=== PATIENT | female | born 1985 | race Caucasian/White ===

== ENCOUNTER 2017-01-27 04:00 | Inpatient (IN) | payer OTHER ==
--- NOTE | ~2017-01-27 | A ---
[facility] Nutrition Therapy DATE: 01/27/17 Patient: DANIELA MENDIETA Physician: SERGEI Address: [address] [facility] Room/Bed: [address], Zip: [place] [address] Admit Date: 01/27/17 Date of : [birth year] Height: 5 6 Weight: 84 38.5 NUTRITIONAL ASSESSMENT: REASON: NPO in ICU, low BMI 31 yo female admitted for acute hypoxic respiratory failure, anoxic encephalopathy PMH: DM, gasteroparesis, IV drug abuse, MRSA abscess/cellulitis in upper extremities Anthropometrics: Ht: 5'2" Wt: 38.2 kg (84#) BMI: 15.4 IBW: 110#, 76% IBW Labs: Gluc 647, BUN 32, Alb 2.3, POC 553, GFR 54.6 Meds: NaCl, Novolin, Protonix, Levophed, D5% I/O & Bowel function: none noted, last BM 01/27 (dirrhea) Skin Integrity: Open wounds (bilat AC), surgical scar (suprapubic), no edema noted Estimated Nutrition Needs: 8866-3082 kcal (35-40 kcal/kg) 57-76 g protein (1.5-2.0 g/kg) Assessment: Chart reviewed, events noted. Pt was admitted d/t OD. Pt is intubated in the ICU, currently on DKA protocol. Per chart, pt was previously admitted to [employer] [facility] d/t N/V, pt left AMA yesterday (01/26). Pt's family is at bedside. Pt's family confirmed height and weight. Pt's family reported pt has persistent N/V d/t gasteroparesis. Pt's family reported pt has very minimal intake and recent weight loss of unknown amount within the past month. Pt is at risk for refeeding syndrome d/t recent weight loss, low BMI, and prolonged poor PO intake. Per RD legal internship observation, pt appeared malnourished, refer to physical malnutrition assessment. See recommendations below. Dx: 1) Inadequate protein-energy intake RT gasteroparesis, N/V AEB family report, BMI 15.4, 76% IBW. 2) Underweight RT poor PO intake, unintentional weight loss AEB BMI 15.4, 76% IBW. Intervention: 1. Enteral nutrition Monitoring, Evaluation and Goals: 1. Enteral nutrition; provide >80% of estimated needs and goal volume x 24 hrs 2. Labs; WNL: glucose, lytes [facility] Nutrition Therapy DATE: 01/27/17 Patient: DANIELA MENDIETA Physician: SERGEI Address: [address] [place] [address] Room/Bed: [address], Zip: [place] [address] Admit Date: 01/27/17 Date of : [birth year] Height: 5 6 Weight: 84 38.5 3. Weight; promote gradual weight gain towards healthy BMI 4. GI; promote regular GI function 5. Skin; promote healing Recommendations: 1. Please obtain Phos & Mg. 2. If pt remains intubated and once medically feasible, place DHT and initiate enteral nutrition support with Glucerna 1.5 @ 10 mL/hr, advance q 12 hrs to goal rate of 40 mL/hr. This will provide: 1440 kcal/ 79 g protein/ 730 mL free H2O. Pt is at risk for refeeding syndrome, please monitor glucose and electrolytes. If enteral nutrition is initiated, start at low rate and graudally increase per RD recommendations above. 3. If extubated, advance diet as tolerated to consistent carb per HIDE SPREADER evaluation. Pt would benefit from supplements, please order Ensure once diet advances. Pt is at a severe nutritional risk. RD will f/u per protocol. Respectfully, Poonam Navarro, Stewardess Supervisor Cheryl Fuentes, BARRY, LD Food and Nutritional Services [facility] cc: client file
--- NOTE | ~2017-01-27 | CT71 ---
[facility] A Service [facility] RADIOLOGY TEXT RESULTS PATIENT: DANIELA MENDIETA LOCATION: [place] [address] : [birth year] UNIT #: [id number] AGE: [address]: Margot Muñoz MD SEX: F ORDER DR: [id number] [place] [address] [facility]. [place], [place] [address] [id number] I MR#: [id number] Acc #: [id number] NAME: DANIELA MENDIETA. : 1985 SEX: F STUDY DATE/TIME: 01/28/2017 10:13 UNIT: [facility] ROOM: [facility] STUDY DESCRIPTION: CT Head Wo Contrast Attending Physician: Margot Muñoz M.D. Ordering Physician: Souleymane Jones M.D. Primary Care Physician: Primary Care Physician No MEDICAL IMAGING REPORT This report is preliminary unless electronic signature is present EXAM CT of the head without contrast INDICATION Pulled from a car on January and found to be unresponsive. She had a CT scan performed at that time which was characteristic of an anoxic brain injury. TECHNIQUE Axial CT images were obtained from the vertex of the skull through the skull base. No intravenous contrast material was administered. This CT exam was performed with one or more of the following radiation dose reduction techniques: automatic exposure control, adjustment of mA and/or kV according to patient size, and iterative reconstruction. FINDINGS There is diffuse loss of the howe-white matter differentiation. There is significant effacement of the ventricles. The fourth ventricle and third ventricle cannot be identified. Basilar cisterns are also effaced. There is some mild mucosal thickening identified within the ethmoid sinuses. Remainder of the visualized paranasal sinuses and mastoid air cells appear clear. No focal soft tissue abnormalities are seen. IMPRESSION Findings are again characteristic of anoxic brain injury with diffuse cerebral edema. No significant interval change when compared to yesterday's study. Dictated by... Jimena Self M.D. [facility] A Service [facility] RADIOLOGY TEXT RESULTS PATIENT: DANIELA MENDIETA LOCATION: [address] : 85 UNIT #: [id number] AGE: [address]: Margot Muñoz MD SEX: F ORDER DR: THIS IS AN ELECTRONICALLY VERIFIED REPORT Jimena Self M.D. at 01/31/2017 7:55 AM ASHELY/katina TD: 01/28/2017 16:13 JOB #: [id number] MEDICAL IMAGING REPORT Page 1 of 1 COPY
--- NOTE | ~2017-01-27 | CT71 ---
[facility] A Service of [facility] RADIOLOGY TEXT RESULTS PATIENT: DANIELA MENDIETA LOCATION: [place] [id number] : 85 UNIT #: [id number] AGE: [address]: Margot Muñoz MD SEX: F ORDER DR: [id number] [place] [address] [facility]. [place], [place] [address] [id number] I MR#: [id number] Acc #: [id number] NAME: DANIELA MENDIETA. : 1985 SEX: F STUDY DATE/TIME: 01/27/2017 15:15 UNIT: [facility] ROOM: [facility] STUDY DESCRIPTION: CT Head Wo Contrast Attending Physician: Margot Muñoz M.D. Ordering Physician: Cheryl De Anda A.P.R.N. Primary Care Physician: No Primary Care Physician MEDICAL IMAGING REPORT This report is preliminary unless electronic signature is present EXAM CT scan of the head without contrast. INDICATION New onset confusion. Patient was pulled from a car unresponsive, is on a ventilator. This happened today. TECHNIQUE Unenhanced images were obtained of the brain. This CT exam was performed with one or more of the following radiation dose reduction techniques: automatic exposure control, adjustment of mA and/or kV according to patient size, and iterative reconstruction. FINDINGS There is diffuse swelling of the brain with loss of the howe-white interface and effacement of the sulci. The basilar cisterns are effaced. The lateral ventricles are still visible but they are small. There is no hemorrhage visible. IMPRESSION Findings suggest diffuse anoxic injury with loss of the howe-white interface and diffuse brain swelling. The basal cisterns are obliterated as are the sulci. There is no hemorrhage or mass visible. Dictated by... Layo Childs M.D. THIS IS AN ELECTRONICALLY VERIFIED REPORT Layo Childs M.D. at 01/28/2017 7:04 AM MASON/suzy [facility] A Service of [facility] RADIOLOGY TEXT RESULTS PATIENT: DANIELA MENDIETA LOCATION: [address] : 85 UNIT #: [id number] AGE: [address]: Margot Muñoz MD SEX: F ORDER DR: TD: 01/27/2017 21:50 JOB #: [id number] MEDICAL IMAGING REPORT Page 1 of 1 COPY
--- NOTE | ~2017-01-27 | EE ---
Unit #: [id number] #: [id number] Patient: DANIELA MENDIETA [id number] [address] [id number] I MR#: [id number] NAME: DANIELA MENDIETA : 1985 SEX: F STUDY DATE/TIME: 01/27/2017 UNIT: [facility] ROOM: [facility] STUDY DESCRIPTION: EEG Attending Physician: Margot Muñoz M.D. Primary Care Physician: No Primary Care Physician NEURODIAGNOSTICS REPORT CHIEF COMPLAINT Drug overdose. DESCRIPTION EEG was obtained in comatose state using the 10-20 international montage system by bedside. EEG showed very low amplitude theta range electroencephalographic activity during a 2-second segment in a 20-minute recording. There were no epileptiform discharges seen. IMPRESSION Findings are consistent with severe diffuse cerebral dysfunction. Dictated by... Kingsley Barnes/kari TD: 01/28/2017 07:41 JOB #: [id number] NEURODIAGNOSTICS REPORT Page 1 of 1 X Renetta Carroll MD NEURODIAGNOSTICS REPORT
--- NOTE | ~2017-01-27 | CR72 ---
[facility] A Service of [facility] RADIOLOGY TEXT RESULTS PATIENT: DANIELA MENDIETA LOCATION: [address] : 85 UNIT #: [id number] AGE: [address]: Margot Muñoz MD SEX: F ORDER DR: [id number] [facility] [address] [facility]. [place], [place] [address] [id number] MR#: [id number] Acc #: [id number] NAME: DANIELA MENDIETA : 1985 SEX: F STUDY DATE/TIME: 01/27/2017 4:22 UNIT: [facility] ROOM: STUDY DESCRIPTION: CR Chest Single View Portable Attending Physician: Edwin Armijo M.D. Ordering Physician: Ed Doctor [id number] [facility] Primary Care Physician: Primary Care Physician No MEDICAL IMAGING REPORT This report is preliminary unless electronic signature is present EXAM Portable chest HISTORY Cardiac arrest, overdose. COMPARISON 05/17/2016 FINDINGS Portable view of the chest demonstrates endotracheal tube in place directed into the right mainstem bronchus. This should be pulled back about 3.5 cm for more optimal positioning. Small amount of left basilar atelectasis. Heart and mediastinum unremarkable. No significant effusions. No pneumothorax. Dictated by... Grady Pollard M.D. THIS IS AN ELECTRONICALLY VERIFIED REPORT Grady Pollard M.D. at 01/27/2017 10:06 PM PEREZ/hedy TD: 01/27/2017 05:27 JOB #: [id number] MEDICAL IMAGING REPORT Page 1 of 1 COPY
--- NOTE | ~2017-01-27 | CR72 ---
[facility] A Service of [facility] RADIOLOGY TEXT RESULTS PATIENT: DANIELA MENDIETA LOCATION: [place] [address] : 85 UNIT #: [id number] AGE: [address]: Margot Muñoz MD SEX: F ORDER DR: [id number] [facility] [address] [place], [place] [address] [id number] I MR#: [id number] Acc #: [id number] NAME: DANIELA MENDIETA : 1985 SEX: F STUDY DATE/TIME: 01/29/2017 5:48 UNIT: [facility] ROOM: [facility] STUDY DESCRIPTION: CR Chest Single View Portable Attending Physician: Margot Muñoz M.D. Ordering Physician: Ron Reid M.D. Primary Care Physician: Primary Care Physician No MEDICAL IMAGING REPORT This report is preliminary unless electronic signature is present EXAM Portable chest INDICATION Follow up support lines and tubes. COMPARISON 01/28/2017. FINDINGS Support lines and tubes are stable. No new infiltrates. Heart size stable. IMPRESSION No significant change in the appearance of the chest. Dictated by... Tres Pollard M.D. THIS IS AN ELECTRONICALLY VERIFIED REPORT Tres Pollard M.D. at 01/29/2017 3:56 PM MILLY/brayden TD: 01/29/2017 15:03 JOB #: [id number] MEDICAL IMAGING REPORT Page 1 of 1 COPY
--- NOTE | ~2017-01-27 | EE ---
Unit #: [id number] #: [id number] Patient: DANIELA MENDIETA [id number] [address] [address] [id number] I MR#: [id number] NAME: DANIELA MENDIETA : 1985 SEX: F STUDY DATE/TIME: UNIT: [facility] ROOM: [facility] STUDY DESCRIPTION: EEG Attending Physician: Margot Muñoz M.D. Primary Care Physician: No Primary Care Physician NEURODIAGNOSTICS REPORT EXAM EEG CHIEF COMPLAINT Anoxic brain injury. DESCRIPTION EEG was obtained in comatose state using the 10-20 International Montage System by bedside. EEG did not show any discernible electroencephalographic activity. IMPRESSION Findings are consistent with electroencephalographic brain . Clinical correlation is advised. Dictated by... Kingsley Barnes/moustapha TD: 01/30/2017 16:01 JOB #: [id number] NEURODIAGNOSTICS REPORT Page 1 of 1 X Renetta Carroll MD NEURODIAGNOSTICS REPORT
--- NOTE | ~2017-01-27 | HP ---
Unit #: [id number] #: [id number] Patient: DANIELA MENDIETA [id number] [address] [place], [place] [address] [id number] I MR#: [id number] NAME: DANIELA MENDIETA. ROOM: [facility] Age: 31 Sex: F Admission Date: 01/27/2017 : 1985 Attending Physician: Margot Muñoz M.D. Primary Care Physician: No Primary Care Physician HISTORY AND PHYSICAL REASON FOR ADMISSION Acute hypoxic respiratory failure/anoxic encephalopathy. HISTORY OF PRESENT ILLNESS The patient is a 31-year-old female with prior history of insulin-dependent diabetes, numerous hospital admissions secondary to DKA, endocarditis with ongoing IV drug abuse, who has been repeatedly admitted off and on at our particular hospital as well as [facility] with a longstanding history of noncompliance, who apparently was dropped off by a group of friends early on the a.m. on January 27, 2017. Initially, she was noted to be obtunded with poor respiratory status and unable to protect airway and subsequently she was intubated in the emergency room. She was also noted to be hypotensive and was placed on Levophed drip. She did respond to normal saline boluses. Her Levophed drip is being continued; however, it is gradually being weaned. She does not have any appreciable neurological response. There is no pupil response. Her pupils are now dilated as well. She is currently on no sedation and is currently on the ventilator as well. There are no family members who are present at bedside. Details are unclear of the events that led prior to her being dropped off here at the hospital. PAST MEDICAL HISTORY 1. Numerous hospital admissions off and on secondary to bacteremia, MRSA infections, poorly controlled diabetes, DKA. Diabetes followed by Dr. Castillo as an outpatient. 2. Ongoing IV drug abuse. 3. Prior history of MRSA abscess/cellulitis bilateral upper extremities. 4. Prior history of skin graft placements. PAST SURGICAL HISTORY 1. . 2. Knee surgeries. 3. Bilateral arm surgeries with skin grafts. SOCIAL HISTORY Patient lives at home with her mother. Per chart report, she has ongoing IV drug abuse. Positive tobacco abuse. Unit #: [id number] #: [id number] Patient: DANIELA MENDIETA FAMILY HISTORY Notable. Mother: Rheumatoid arthritis. ALLERGIES No known drug allergies per chart. HOME MEDICATIONS 1. Humalog. 2. Levemir. 3. Reglan. 4. Phenergan. However, questionable compliance. REVIEW OF SYSTEMS Limited secondary to current condition. DIAGNOSTIC STUDIES LABORATORY: Laboratory studies on admission include a urine tox screen positive for opioids. Initial arterial blood gas shows a pH of 6.824, pCO2 of 55, pO2 of 250. CBC shows a white count of 18.4, hemoglobin 7.8. BMP shows blood sugar of 801, BUN and creatinine of 32.1 and 1.3, bicarbonate 10. AST, ALT of 5416 and 1526. IMAGING: Initial chest x-ray remains clear. PHYSICAL EXAMINATION VITAL SIGNS: Temperature 96.6, pulse 122, respiratory rate 22, blood pressure 102/70. GENERAL APPEARANCE: The patient is a 31-year-old female on no sedation, on ventilator support. No appreciable response. HEENT: Head: Atraumatic, normocephalic. Eyes: Pupils fixed, dilated. NECK: Supple. No JVD. No carotid bruits. CARDIOVASCULAR: S1, S2 without murmur heard. RESPIRATORY: Poor air exchange noted bilaterally. GASTROINTESTINAL/ABDOMEN: Nondistended. EXTREMITIES: No evidence of any lower extremity edema. NEUROLOGIC: The patient has no appreciable neurological response. No pupillary response which is noted. Patient does not withdraw to pain stimuli. INITIAL ADMISSION DIAGNOSES 1. Acute hypoxic respiratory failure. 2. Diabetic ketoacidosis. 3. Anoxic encephalopathy, likely severe. 4. Ongoing IV drug abuse. 5. Transaminitis, secondary likely to shock. 6. Septic shock on admission. 7. Hypotension. 8. Sepsis present on admission. PLAN 1. Admission intensive care unit. 2. Consultation will be placed to Dr. Reid of pulmonary services as well as neurology services. 3. Diabetic ketoacidosis protocol initiated. 4. No family members are currently present at bedside. Will follow up Unit #: [id number] #: [id number] Patient: DANIELA MENDIETA with them. 5. Levophed drip, titrate to keep blood pressure/MAP greater than 65. 6. Overall and unfortunately this patient's prognosis is dismal/poor. Will await neurological function and re-evaluation by Dr. Jones. I will follow up with family members. Prognosis poor at this point. Dictated by Kingsley Hill/lovely TD: 01/27/2017 10:08 JOB #: [id number] HISTORY AND PHYSICAL Page 1 of 1 X Margot Muñoz MD X HISTORY AND PHYSICAL
--- NOTE | ~2017-01-27 | EKG ---
PATIENT: DANIELA MENDIETA UNIT #: [id number] Ventricular Rate: 128 BPM Atrial Rate: 128 BPM P-R Interval: 112 ms QRS Duration: 90 ms Q-T Interval: 374 ms QTC Calculation(Bezet): 546 ms Calculated R [place]: 26 degrees Calculated T [place]: -146 degrees Diagnosis Line: Sinus tachycardia Diagnosis Line: ST and T wave abnormality, consider inferior Diagnosis Line: ischemia Diagnosis Line: ST and T wave abnormality, consider anterolateral Diagnosis Line: ischemia Diagnosis Line: Abnormal ECG Diagnosis Line: No previous ECGs available Diagnosis Line: Confirmed by JAY LAKE MD ([id number]) on 01/27/2017 Diagnosis Line: 10:05:03 AM INTERPRETING MD: JAYA HERNANDEZ
--- NOTE | ~2017-01-27 | DS ---
Unit #: [id number] #: [id number] Patient: DANIELA MENDIETA [id number] [address] [address] [id number] I MR#: [id number] NAME: DANIELA MENDIETA. ROOM: [facility] Age: 31 Sex: F Admission Date: 01/27/2017 : 1985 Discharge Date: 01/31/2017 Attending Physician: Margot Muñoz M.D. Primary Care Physician: No Primary Care Physician DISCHARGE SUMMARY The patient . HISTORY OF PRESENT ILLNESS The patient is a 31-year-old female, prior history of diabetes, insulin dependence, longstanding history of IV drug abuse, was admitted secondary to drug overdose, acute hypoxic respiratory failure through hospital course, placed ventilator, ICU and consultation was obtained with Dr. Reid and associates from pulmonary. Also, consultation was placed with neurology services. The patient underwent EEG, CT brain which did reveal changes consistent with cerebral edema. EEG showed findings that were consistent with minimal brain activity. The patient received no sedation, had no neurological reflex through hospital course. Pulmonary services as well as neurology services stated her prognosis was dismal. The patient ultimately on 01/31/2017. FINAL DISCHARGE DIAGNOSES 1. Acute hypoxic/hypercapnic respiratory failure. 2. Status post cardiopulmonary arrest. 3. Drug overdose. 4. Severe anoxic encephalopathy. 5. Probable aspiration pneumonia. 6. Diabetic ketoacidosis on admission. 7. Ongoing drug abuse with prior history of endocarditis. 8. Longstanding history of noncompliance and poor insight into disease process. 9. Cerebral edema noted on day of admission. Dictated by... Margot Muñoz M.D. ISN/moustapha TD: 02/01/2017 08:02 JOB #: [id number] Unit #: [id number] #: [id number] Patient: DANIELA MENDIETA DISCHARGE SUMMARY Page 1 of 1 X Margot Muñoz MD X DISCHARGE SUMMARY
--- NOTE | ~2017-01-27 | MAL ---
[facility] Nutrition Therapy DATE: 01/27/17 Patient: DANIELA MENDIETA Physician: SERGEI Address: [address] [facility] Room/Bed: [address], Zip: [place] [id number] Admit Date: 01/27/17 Date of : [birth year] Height: 5 6 Weight: 84 38.5 PHYSICAL MALNUTRITION ASSESSMENT Energy Intake, Chronic Illness Severely reduced: </=50% needs for >/=1 month Energy Intake Comment: Pt's family reported pt prolonged minimal intake for the past month d/t gastroparesis. Likely, less than 50% of estimated needs. Weight Loss, Chronic Illness Severe: >10% past 6 months Weight Loss, Comment: Pt's family reported recent weight loss within the past month. Per [employer], pt has lost 24# (22% weight loss) since September (5 months). Physical Findings Body Fat and Muscle Mass Severe: (obvious) significant muscle wasting and/or loss of subcutaneous fat Physical Findings Comment: Per RD quality intern observation, shoulder to arm joint looks square, hollow orbitals with dark circles, and protruding, prominent clavicle. Malnutrition Survey Results: Malnutrition identified Malnutrition Etiology Summary: Chronic illness severe Malnutrition Survey Comment: See RD nutrition assessement for additional information. Respectfully, Poonam Navarro, Investment Associate Cheryl Fuentes RD, LD Food and Nutritional Services [facility] [place] [facility] cc: client file
--- NOTE | ~2017-01-27 | CR72 ---
[facility] A Service of [facility] & [facility] RADIOLOGY TEXT RESULTS PATIENT: DANIELA MENDIETA LOCATION: [place] [address] : [birth year] UNIT #: [id number] AGE: [address]: Margot Muñoz MD SEX: F ORDER DR: [id number] [facility] [address] [facility]. [place], [place] [address] [id number] I MR#: [id number] Acc #: [id number] NAME: DANIELA MENDIETA : 1985 SEX: F STUDY DATE/TIME: 01/28/2017 5:48 UNIT: [facility] ROOM: [facility] STUDY DESCRIPTION: CR Chest Single View Portable Attending Physician: Margot Muñoz M.D. Ordering Physician: Physician Non-Staff Primary Care Physician: Primary Care Physician No MEDICAL IMAGING REPORT This report is preliminary unless electronic signature is present EXAM Portable chest, 01/28/2017 COMPARISON 01/27/2017 HISTORY Endotracheal tube follow-up. Drug overdose. FINDINGS A portable view of the chest was obtained. The heart size and vascularity are normal and the lungs are clear. There is central venous catheter with its tip in the right atrium and the endotracheal tube is in good position. IMPRESSION No change. No active disease. The endotracheal tube is in good position. Dictated by... Layo Childs M.D. THIS IS AN ELECTRONICALLY VERIFIED REPORT Layo Childs M.D. at 01/28/2017 4:07 PM MASON/katina TD: 01/28/2017 08:06 JOB #: [id number] MEDICAL IMAGING REPORT Page 1 of 1 COPY
--- NOTE | ~2017-01-27 | CO ---
Unit #: [id number] #: [id number] Patient: DANIELA MENDIETA [id number] [facility]. [place], [place] [address] [id number] MR#: [id number] NAME: DANIELA MENDIETA. ROOM: [id number] Age: 31 Sex: F Admission Date: 01/27/2017 : 1985 Attending Physician: Margot Muñoz M.D. Primary Care Physician: No Primary Care Physician CONSULTATION REPORT HISTORY OF PRESENT ILLNESS Ms. Mendieta is a 31-year-old white female, who was brought in by acquaintances after being found down at home. She apparently had been in the hospital at [facility] for nausea and vomiting, at least in the emergency room. She left AMA yesterday. She also left AMA from another ER visit recently. She has a history of diabetes mellitus, endocarditis, and IV drug abuse. Her mother says that she had kicked her out of the house because she was using drugs. She apparently had gone to somebody's house yesterday and her mother had called her and her mother could tell that she had been using drugs but Ms. Mendieta would not return home and apparently she was found down and transported here and resuscitated. I am told she was given Narcan without any response. Here in the emergency room, she was intubated. Her ET tube was at the milton. It has been pulled back. Her lab work was significant for a glucose of 801, creatinine 1.3, potassium 5, sodium 140, CO2 of 10. AST, ALT, and alkaline phosphatase of 5416, 1526, and 333. Lactic acid has not been done. Acetaminophen was less than 10 and salicylate was 5. Beta hydroxybutyrate has not been done yet. Alcohol level was 9. Arterial blood gases revealed pH of 7.05, pCO2 of 32, pO2 of 227 on 50%, assist control of 18, tidal volume 450, and 5 of PEEP. Initial cardiac enzymes were negative. White count was 18,400, hematocrit 26.5 which was stable from before. Platelet count is 119,000. Previous HIV in February 2016 was nonreactive. Toxicity screen/urine tox was positive for opiates. No urinalysis has been done at present. PAST MEDICAL HISTORY 1. History of diabetes. 2. Gastroparesis. 3. History of endocarditis in July, according to the records in the chart. 4. History of IV drug abuse. 5. History of MRSA abscess and cellulitis in the upper extremities. PAST SURGICAL HISTORY 1. . 2. Right knee surgery. 3. Bilateral arm surgery with skin grafts bilaterally. 4. She has had three children. SOCIAL HISTORY Had been living with her mother. Has three children cared for by their father. Continued IV drug abuse. A few cigarettes. ALLERGIES Unit #: [id number] #: [id number] Patient: DANIELA MENDIETA No known allergies. HOME MEDICATIONS 1. Humalog. 2. Levemir. 3. Reglan. 4. Probiotic. FAMILY HISTORY Rheumatoid arthritis. REVIEW OF SYSTEMS Not possible. Patient completely unresponsive. PHYSICAL EXAMINATION GENERAL: White female. She is orally intubated. Pupils fixed and dilated. No gag. No corneals, doll's eyes. VITAL SIGNS: Blood pressure is 102/70, pulse is 122, respiratory rate is 22, temperature 96.6. She is currently maintained on Levophed drip. Lowest blood pressure recorded was 50/28. She has received 2 L of fluid in the ER over the last five hours. NECK: Supple. Trachea midline. LUNGS: Occasional rhonchi. CARDIAC: Regular rate and rhythm. Could not appreciate murmur, rub, or gallop. ABDOMEN: Nontender. Bowel sounds present. No hepatosplenomegaly. EXTREMITIES: Without clubbing, cyanosis, or edema. Scars on forearm. No response to pain. DIAGNOSTIC STUDIES LABORATORY: Laboratory studies are reviewed. IMAGING: Chest x-ray: ET tube just above milton. No infiltrate, mass, or congestion. IMPRESSION 1. Respiratory failure, acute. 2. Diabetic ketoacidosis. 3. IV drug abuse and overdose. 4. Leukocytosis. 5. Diarrhea. 6. Questionable history of endocarditis. 7. Chronic anemia. 8. Thrombocytopenia. 9. Anoxic encephalopathy. PLAN 1. Vent support. 2. Broad-spectrum antibiotics for infection given leukocytosis. 3. Rule out myocardial infarction given leukocytosis. 4. Neuro to see. 5. Diabetic ketoacidosis protocol. 6. Hydration with normal saline. 7. Replacement of potassium, etc. as needed. 8. Panculture. 9. Rule out Clostridium difficile given diarrhea. 10. Further recommendations pending this. Unit #: [id number] #: [id number] Patient: DANIELA MENDIETA Forty minutes critical care time. Discussed (1) seeing patient, reviewing charts, discussing with mother and nursing staff. Dictated by... Kingsley Kowalski/lovely TD: 01/27/2017 09:33 JOB #: [id number] CONSULTATION REPORT Page 1 of 1 X Ron Reid MD X CONSULTATION REPORT
--- NOTE | ~2017-01-27 | CO ---
Unit #: [id number] #: [id number] Patient: DANIELA MENDIETA [id number] [facility] [address]. [place], [place] [address] [id number] MR#: [id number] NAME: DANIELA MENDIETA. ROOM: [facility] Age: 31 Sex: F Admission Date: 01/27/2017 : 1985 Attending Physician: Margot Muñoz M.D. Primary Care Physician: No Primary Care Physician Consultation Date: 01/27/2017 CONSULTATION REPORT PRIMARY CARE PHYSICIAN Not listed. CONSULTING PHYSICIAN Dr. Ron Reid. REASON FOR CONSULT Overdose. PATIENT IDENTIFICATION This is a 31-year-old right handed female evaluated in ICU, room 17 at [facility]. SOURCE OF INFORMATION Obtained from the patient's mother at the bedside as well as the medical record. HISTORY OF PRESENT ILLNESS This is a 31-year-old right handed female with a past medical history of insulin-dependent diabetes mellitus, recurrent DKA, noncompliance, and IV drug abuse who presents to [facility] with altered mental status and impaired respiratory status. Apparently, she was dropped off by some friends. She was intubated in the ER and admitted for acute respiratory failure. Neurologically, she has had no response. She has not been sedated. She was initially placed on a Levophed drip and she was sent to the ICU for further monitoring and evaluation. She was also started on DKA protocol. Her glucose on arrival was 801. Her CO2 was 10, and she has multiple other abnormal labs. Urine tox screen was positive for opiates. Her mother is at the bedside and states that she has had a lot of recent struggles with drug abuse and noncompliant. She states that she was actually just recently hospitalized at [facility] and she was actually in the ICU and left against medical advice she says as late as yesterday. She states that she was supposed to be having a "heart evaluation for possible heart infection" but that was not completed. She states that the patient took a cab to her house. She states that she paid for the cab to take her to the place where she was living; however, she thinks that she instructed the cab to take her elsewhere to get drugs. She was dropped off by some friends and had apparently decreased mental status, was obtunded and had very poor respiratory effort and required intubation. Neurology was asked to evaluate further. On evaluation, she has not been sedated. She is intubated. She has no response to noxious stimuli. Her pupils are fixed and dilated. She has no pupillary response, no oculocephalic reflex response, and no corneal response at this time. She does not appear to Unit #: [id number] #: [id number] Patient: DANIELA MENDIETA have any myoclonus at this time and again, essentially no movement in response to noxious stimuli. No brain imaging studies available at this time. A CT scan has been ordered. PAST MEDICAL HISTORY 1. Insulin-dependent diabetes mellitus. 2. Recurrent DKA. 3. Noncompliance. 4. Gastroparesis. 5. History of endocarditis in July, per medical records. Apparently, she was recently being re-evaluated for possible endocarditis at [facility] per the mother. 6. Ongoing IV drug abuse. 7. MRSA abscess and cellulitis in the upper extremities. She was seen at this facility and treated for that in September of this year. 8. Chronic anemia. 9. Tobacco abuse. 10. . 11. Right knee surgery. 12. Bilateral arm surgery including skin graft. FAMILY HISTORY Noncontributory to representing condition. SOCIAL HISTORY The patient apparently lives on and off with her mother and stays elsewhere. I am uncertain of her living situation. Otherwise, her mother states that she has other living arrangements. She has ongoing IV drug use with poor insight to her condition. She has history of tobacco use. Her alcohol level was 9 on arrival. ALLERGIES No known drug allergies. HOME MEDICATIONS As per med rec, include: 1. Humalog insulin sliding scale. 2. Levemir insulin 30 units subcutaneous b.i.d. 3. Reglan 10 mg p.o. daily. 4. Probiotic one tab p.o. daily. REVIEW OF SYSTEMS Unable to obtain given the patient's current medical condition. PHYSICAL EXAMINATION VITAL SIGNS: Temperature 97.7. She has been afebrile. She was hypothermic on arrival. Pulse 119, respirations 20, blood pressure 121/77. She is on Levophed. She was severely hypotensive on arrival, lowest blood pressure of 50/28 early this morning after arrival and intubation. Oxygen saturations 99%. Height 5 feet 6 inches, weight 84 pounds, BMI 13. NEUROLOGIC: She is nonresponsive at this time. She is intubated. She is not sedated. She does have positive opiates in her system on her drug screen. Her alcohol level was 9 on arrival. She again does not response to any noxious stimuli, has 0/3 eye signs, negative corneals, negative oculocephalic reflex, and pupils are fixed and dilated at 5. CRANIAL NERVES: Very limited. Unable to evaluate uribe of vision. Again, eyes are conjugate. She has no ptosis or nystagmus or hippus. She Unit #: [id number] #: [id number] Patient: DANIELA MENDIETA has negative oculocephalic reflex. Unable to evaluate sensation in the face and scalp or strength of muscles of facial expression. No asymmetry seen. Unable to evaluate hearing, tongue, uvula, palate, head turning, or shoulder shrug as the patient is unresponsive. Neck is supple. MOTOR: She has decreased tone. No response to deep nail bed pressure in all extremities. SENSORY: No response to noxious stimuli. COORDINATION: Unable to assess. GAIT: Gat and Romberg unable to assess. REFLEXES: Not elicited. Toes were moot. DIAGNOSTIC STUDIES LABORATORY: Sodium 140, potassium 5, chloride 107, CO2 of 10, glucose 801, BUN 32, creatinine 1.3, estimated GFR 54.6. Calcium 8.6. AST 5416, ALT 1526, alkaline phosphatase 333. Acetaminophen level less than 10. Salicylate level 5. Alcohol level 9. White blood cell count 18.4, hemoglobin 7.8, hematocrit 26.5, platelet count 119,000. Urine drug screen positive for opiates. Troponin less than 0.05. IMAGING: CT of the head has been ordered and is pending. EEG has been ordered and is pending. CARDIOVASCULAR: EKG: Sinus tachycardia with ventricular rate of 128 beats per minute with ST and T wave abnormality per cardiology report on January 27, 2017. IMPRESSION 1. Encephalopathy: Clinical concern for anoxic injury. 2. IV drug abuse: Questionable overdose. 3. Acute respiratory failure, pulmonology following. 4. Diabetic ketoacidosis. 5. History of insulin-dependent diabetes mellitus. 6. Leukocytosis. 7. Possible recent endocarditis, per the mother. Patient left against medical advice from [facility] prior to full evaluation. 8. Recent methicillin-resistant Staphylococcus aureus cellulitis of extremities, secondary to IV drug use. Will place in isolation given open lesions of right upper extremity currently on exam. 9. Noncompliance. PLAN Patient has currently no response to noxious stimuli. She was brought in, in the early hours this morning so she is less than 12 hours from initial event. Will monitor closely. Request a CT scan of the head, EEG to be done at the bedside. Case was discussed with Dr. Carroll and he will see and we will follow along with you. I discussed the patient's physical exam with the mother and answered her questions and we will update her pending further evaluation and pending workup. Please call for any questions or issues. We thank you very much for allowing us to assist in the care of this patient. Dictated by... Cheryl De Anda A.P.R.N. for Unit #: [id number] #: [id number] Patient: DANIELA MENDIETA M.D. [facility]/lovely TD: 01/27/2017 13:24 JOB #: [id number] CONSULTATION REPORT Page 1 of 1 X Cheryl De Anda DIRECTOR OF LABOR RELATIONS X CONSULTATION REPORT
--- NOTE | ~2017-01-27 | CR72 ---
[facility] A Service of [facility] RADIOLOGY TEXT RESULTS PATIENT: DANIELA MENDIETA LOCATION: [address] : [birth year] UNIT #: [id number] AGE: [address]: Margot Muñoz MD SEX: F ORDER DR: [id number] [facility] [address]. [place], [place] [address] [id number] MR#: [id number] Acc #: [id number] NAME: DANIELA MENDIETA : 1985 SEX: F STUDY DATE/TIME: 01/27/2017 5:27 UNIT: [facility] ROOM: STUDY DESCRIPTION: CR Chest Single View Portable Attending Physician: Javier Kennedy M.D. Ordering Physician: Ricardo Delgado M.D. Primary Care Physician: Primary Care Physician No MEDICAL IMAGING REPORT This report is preliminary unless electronic signature is present EXAM Portable chest HISTORY Overdose, central line placement. FINDINGS Examination demonstrates slight pullback of the patient's endotracheal tube now at the milton. Additional pullback of at least 2.5-3 cm recommended. Interval placement of a right neck approach central line probably projecting near or into the right atrium. Lungs remain clear. No effusions. No pneumothorax. Heart, mediastinum unremarkable. Dictated by... Grady Pollard M.D. THIS IS AN ELECTRONICALLY VERIFIED REPORT Grady Pollard M.D. at 01/27/2017 10:08 PM PEREZ/brayden TD: 01/27/2017 06:33 JOB #: [id number] MEDICAL IMAGING REPORT Page 1 of 1 COPY
[~2017-01-27 04:00] MED LIST: DOCUSATE SODIU100 MG PO; DOXYCYCLINE HY100 M3 PO; DOXYCYCLINE PO; HUMALOG100 U/M1 SQ; HUMALOG100 U/ML SUBQ; HUMALOG100 UNIT/2; IRON325 ( 651 PO; IRON325 ( 652 PO; LEVEMIR SQ; LEVEMIR SUBQ; LEVEMIR100 UNITS/ SUBCON; LORTAB 7.5-3251 EACH PO; MIRAPEX0.125 MG PO; NORCO 7.5-3251 EACH PO; PHENERGAN12.5 MG PO; PROBIOTIC1 EAC1 PO; REGLAN10 MG PO; TYLENOL325 M1 PO; VITAMIN C500 M1 PO
[2017-01-27 04:33] LABS: ARTERIAL BLD GAS O2 SATURATION 97.6 % (90.0-100.0); ARTERIAL BLOOD GAS CARBOXY HB 0.7 %sat (0.0-9.0)
[2017-01-27 04:34] LABS: ARTERIAL BLOOD GAS ART SITE RIGHT FEMORAL; ARTERIAL BLOOD GAS DELIVERY VENT; ARTERIAL BLOOD GAS VENT MODE AC; ARTERIAL BLOOD GAS pH 6.824 (7.350-7.450); ARTERIAL DRAW? YES
[2017-01-27 05:06] LABS: AMPHETAMINE NEG (NEG); BARBITURATES NEG (NEG); BENZODIAZEPINES NEG (NEG); COCAINE NEG (NEG); MARIJUANA NEG (NEG); OPIATES POS (NEG); TRICYCLIC ANTIDEPRESSANTS NEG (NEG); U METHADONE NEG (NEG)
[2017-01-27 05:40] LABS: POC - CKMB 2.6 ng/mL (0.0-7.9); POC - TROPONIN <0.05 ng/mL (<=0.05)
[2017-01-27 06:17] LABS: BASOPHIL# 0.1 X10e3 (0-0.3); BASOPHIL% 0.6 % (0-2.5); EOSINOPHIL% 0.2 % (0.0-7.0); HEMATOCRIT 26.5 % (35.0-45.0); HEMOGLOBIN 7.8 gm/dL (12.0-16.0); LYMPHOCYTE# 3.7 X10e3 (1.0-3.5); LYMPHOCYTE% 20.2 % (17.0-45.0); MEAN CELL VOLUME 95.1 FL (83-96); MEAN CORPUSCULAR HEMOGLOBIN 27.9 PG (28-34); MEAN CORPUSCULAR HGB CONC 29.3 g/dL (30-36); MEAN PLATELET VOLUME 7.3 FL (6.5-11.5); MONOCYTE# 0.4 X10e3 (0-1.0); MONOCYTE% 2.4 % (3.0-12.0); NEUTROPHIL# 14.1 X10e3 (1.5-7.1); NEUTROPHIL% 76.6 % (40-75); PLATELET COUNT 119 X10e3 (140-420); RED BLOOD COUNT 2.79 X10e (3.90-5.30); RED CELL DISTRIBUTION WIDTH 16.3 % (11.0-15.5); WHITE BLOOD COUNT 18.4 X10e3 (4.0-10.5)
[2017-01-27 06:18] LABS: DIFF IND YES
[2017-01-27 06:36] LABS: ANISOCYTOSIS MOD; MICROCYTOSIS SL; PLATELET ESTIMATE NORMAL (NORMAL)
[2017-01-27 06:45] LABS: ARTERIAL BLOOD GAS CARBOXY HB 0.6 %sat (0.0-9.0); ARTERIAL BLOOD GAS MET HB 1.3 %sat (0.0-2.0)
[2017-01-27 06:47] LABS: ARTERIAL BLOOD GAS ART SITE RIGHT BRACHIAL; ARTERIAL BLOOD GAS VENT MODE A/C; ARTERIAL BLOOD GAS pH 7.058 (7.350-7.450); ARTERIAL DRAW? YES
[2017-01-27 08:05] LABS: ALBUMIN SERUM 2.3 g/dL (3.5-5.0); ALCOHOL BLOOD 9 mg/dL (0); ALKALINE PHOSPHATASE 333 U/L (32-92); ALT (SGPT) 1526 U/L (10-40); BILIRUBIN, DIRECT 0.2 mg/dL (0.0-0.2); BILIRUBIN,INDIRECT 0.8 mg/dL (0.0-0.9); BLOOD UREA NITROGEN 32 mg/dL (9-23); BUN/CREATININE RATIO 24.61; CALCIUM SERUM 8.6 mg/dL (8.4-10.2); CARBON DIOXIDE 10 mmol/L (22-31); CHLORIDE 107 mmol/L (100-111); CREATININE SERUM 1.3 mg/dL (0.6-1.4); GLOM FILT RATE Estimated 54.6 mL/min (>60); PROTEIN TOTAL SERUM 4.9 g/dL (6.0-8.3); SODIUM 140 mmol/L (135-145)
[2017-01-27 08:06] LABS: ACETAMINOPHEN <10 ug/mL; AST (SGOT) 5416 U/L (10-42); GLUCOSE FASTING 801 mg/dL (70-110)
[2017-01-27] MEDS ORDERED: LEVEMIR SUBQ (08:11)
[2017-01-27] MEDS ORDERED: HUMALOG100 UNIT/1 (08:11)
[2017-01-27] MEDS ORDERED: REGLAN10 MG PO (08:12)
[2017-01-27] MEDS ORDERED: PROBIOTIC1 EAC1 PO (08:12)
[2017-01-27 10:28] LABS: ARTERIAL BLD GAS O2 SATURATION 97.8 % (90.0-100.0); ARTERIAL BLOOD GAS CARBOXY HB 1.1 %sat (0.0-9.0); ARTERIAL BLOOD GAS HCO3 12.1 mmol/L; ARTERIAL BLOOD GAS MET HB 1.3 %sat (0.0-2.0); ARTERIAL BLOOD GAS PCO2 29.4 mmHg (35.0-45.0); ARTERIAL BLOOD GAS pH 7.221 (7.350-7.450)
[2017-01-27] MEDS ORDERED: AMBIEN PO (10:30)
[2017-01-27 10:31] LABS: ARTERIAL BLOOD GAS ALLEN TEST NORMAL; ARTERIAL BLOOD GAS ART SITE RIGHT BRACHIAL; ARTERIAL BLOOD GAS DELIVERY VENT; ARTERIAL BLOOD GAS VENT MODE AC; ARTERIAL DRAW? YES
[2017-01-27 11:28] LABS: URINE APPEARANCE CLEAR; URINE BILIRUBIN NEG (NEG); URINE BLOOD NEG (NEG); URINE COLOR YELLOW; URINE GLUCOSE >1000 MG/DL (NEG); URINE KETONE 3+ (NEG); URINE LEUKOCYTE ESTERASE NEG (NEG); URINE NITRATE NEG (NEG); URINE PH 5.5 (5-8); URINE PROTEIN 1+ (NEG); URINE SPECIFIC GRAVITY 1.024 (1.003-1.035); URINE UROBILINOGEN 0.2 MG/DL (NEG)
[2017-01-27 11:30] LABS: URINE BACTERIA AUWI NEG (NEGATIVE); URINE SQUAMOUS EPITHELIAL CELL NONE SEEN /[HPF]; UWBCS1 AUWI 0-2 (0-5)
[2017-01-27 11:32] LABS: CULTURE INDICATED? NO
[2017-01-27 12:02] LABS: %MB 4.1 % (0.0-4.0); MB 19.4 ng/ml
[2017-01-27 19:03] LABS: %MB 6.7 % (0.0-4.0); MB 41.9 ng/ml
[2017-01-27 20:34] LABS: CALCIUM SERUM 7.7 mg/dL (8.4-10.2); CREATININE SERUM 1.8 mg/dL (0.6-1.4); GLOM FILT RATE Estimated 36.9 mL/min (>60)
[2017-01-27 20:40] LABS: POTASSIUM 2.6 mmol/L (3.5-5.1)
[2017-01-28 01:41] LABS: BUN/CREATININE RATIO 18.33; CALCIUM SERUM 7.6 mg/dL (8.4-10.2); CREATININE SERUM 1.8 mg/dL (0.6-1.4); GLOM FILT RATE Estimated 36.9 mL/min (>60); PHOSPHOROUS 2.8 mg/dL (2.5-4.6)
[2017-01-28 01:44] LABS: POTASSIUM 2.7 mmol/L (3.5-5.1)
[2017-01-28 01:59] LABS: %MB 6.6 % (0.0-4.0); MB 41.1 ng/ml
[2017-01-28 04:41] LABS: ARTERIAL BLOOD GAS CARBOXY HB 0.8 %sat (0.0-9.0); ARTERIAL BLOOD GAS HCO3 15.7 mmol/L; ARTERIAL BLOOD GAS MET HB 0.7 %sat (0.0-2.0); ARTERIAL BLOOD GAS PCO2 25.4 mmHg (35.0-45.0); ARTERIAL BLOOD GAS pH 7.399 (7.350-7.450)
[2017-01-28 04:42] LABS: ARTERIAL BLOOD GAS ALLEN TEST NORMAL; ARTERIAL BLOOD GAS ART SITE RIGHT RADIAL; ARTERIAL BLOOD GAS DELIVERY VENT; ARTERIAL BLOOD GAS VENT MODE AC; ARTERIAL DRAW? YES
[2017-01-28 06:18] LABS: BUN/CREATININE RATIO 17.22; CALCIUM SERUM 7.4 mg/dL (8.4-10.2); CREATININE SERUM 1.8 mg/dL (0.6-1.4); GLOM FILT RATE Estimated 36.9 mL/min (>60); POTASSIUM 3.1 mmol/L (3.5-5.1)
[2017-01-28 08:31] LABS: BASOPHIL% 0.6 % (0-2.5); EOSINOPHIL# 0.1 X10e3 (0-0.7); EOSINOPHIL% 1.7 % (0.0-7.0); HEMOGLOBIN 7.2 gm/dL (12.0-16.0); LYMPHOCYTE# 0.7 X10e3 (1.0-3.5); LYMPHOCYTE% 20.2 % (17.0-45.0); MEAN CORPUSCULAR HEMOGLOBIN 28.4 PG (28-34); MEAN CORPUSCULAR HGB CONC 32.6 g/dL (30-36); MEAN PLATELET VOLUME 6.3 FL (6.5-11.5); MONOCYTE# 0.1 X10e3 (0-1.0); MONOCYTE% 2.5 % (3.0-12.0); NEUTROPHIL# 2.6 X10e3 (1.5-7.1); RED BLOOD COUNT 2.52 X10e (3.90-5.30); RED CELL DISTRIBUTION WIDTH 16.5 % (11.0-15.5)
[2017-01-28 08:52] LABS: WHITE BLOOD COUNT 3.5 X10e3 (4.0-10.5)
[2017-01-28 08:58] LABS: PLATELET COUNT 59 X10e3 (140-420)
[2017-01-28 09:08] LABS: DIFF IND YES; MEAN CELL VOLUME 87.2 FL (83-96)
[2017-01-28 09:19] LABS: ANISOCYTOSIS SL; NUCLEATED RED BLOOD CELL 1 /100 (0); PLATELET ESTIMATE DECREASED (NORMAL)
[2017-01-28 09:20] LABS: TEAR DROP CELLS PRESENT
[2017-01-28 09:21] LABS: SMUDGE CELLS 11 /100
[2017-01-29 03:51] LABS: ARTERIAL BLD GAS O2 SATURATION 98.8 % (90.0-100.0); ARTERIAL BLOOD GAS CARBOXY HB 0.6 %sat (0.0-9.0); ARTERIAL BLOOD GAS HCO3 12.7 mmol/L; ARTERIAL BLOOD GAS MET HB 0.8 %sat (0.0-2.0); ARTERIAL BLOOD GAS PCO2 25.8 mmHg (35.0-45.0)
[2017-01-29 03:54] LABS: ARTERIAL BLOOD GAS ART SITE RIGHT BRACHIAL; ARTERIAL BLOOD GAS DELIVERY VENT; ARTERIAL BLOOD GAS VENT MODE AC; ARTERIAL DRAW? YES
[2017-01-29 05:52] LABS: BASOPHIL# 0.1 X10e3 (0-0.3); EOSINOPHIL% 0.7 % (0.0-7.0); HEMATOCRIT 22.7 % (35.0-45.0); HEMOGLOBIN 7.3 gm/dL (12.0-16.0); LYMPHOCYTE# 0.9 X10e3 (1.0-3.5); LYMPHOCYTE% 16.2 % (17.0-45.0); MEAN CELL VOLUME 89.2 FL (83-96); MEAN CORPUSCULAR HEMOGLOBIN 28.5 PG (28-34); MEAN CORPUSCULAR HGB CONC 31.9 g/dL (30-36); MEAN PLATELET VOLUME 7.1 FL (6.5-11.5); MONOCYTE# 0.1 X10e3 (0-1.0); MONOCYTE% 2.5 % (3.0-12.0); NEUTROPHIL# 4.5 X10e3 (1.5-7.1); NEUTROPHIL% 79.6 % (40-75); RED BLOOD COUNT 2.55 X10e (3.90-5.30); RED CELL DISTRIBUTION WIDTH 17.2 % (11.0-15.5)
[2017-01-29 05:55] LABS: WHITE BLOOD COUNT 5.6 X10e3 (4.0-10.5)
[2017-01-29 05:57] LABS: DIFF IND NO; PLATELET COUNT 31 X10e3 (140-420)
[2017-01-29 06:19] LABS: BUN/CREATININE RATIO 13.21; CALCIUM SERUM 7.8 mg/dL (8.4-10.2); CREATININE SERUM 2.8 mg/dL (0.6-1.4); GLOM FILT RATE Estimated 21.6 mL/min (>60)
[2017-01-30 04:04] LABS: ARTERIAL BLD GAS O2 SATURATION 94.7 % (90.0-100.0); ARTERIAL BLOOD GAS CARBOXY HB 1.2 %sat (0.0-9.0); ARTERIAL BLOOD GAS HCO3 13.1 mmol/L; ARTERIAL BLOOD GAS MET HB 0.8 %sat (0.0-2.0); ARTERIAL BLOOD GAS pH 7.312 (7.350-7.450)
[2017-01-30 05:16] LABS: ARTERIAL DRAW? YES
[2017-01-30 05:17] LABS: ARTERIAL BLOOD GAS ART SITE RIGHT BRACHIAL; ARTERIAL BLOOD GAS DELIVERY VENT; ARTERIAL BLOOD GAS VENT MODE AC
[2017-01-31 04:19] LABS: ARTERIAL BLOOD GAS CARBOXY HB 0.8 %sat (0.0-9.0); ARTERIAL BLOOD GAS HCO3 13.2 mmol/L; ARTERIAL BLOOD GAS MET HB 0.9 %sat (0.0-2.0); ARTERIAL BLOOD GAS PCO2 35.5 mmHg (35.0-45.0)
[2017-01-31 04:23] LABS: ARTERIAL BLOOD GAS ART SITE RIGHT BRACHIAL; ARTERIAL BLOOD GAS DELIVERY VENT; ARTERIAL BLOOD GAS PO2 69.2 mmHg (80.0-100); ARTERIAL BLOOD GAS VENT MODE A/C; ARTERIAL DRAW? YES
== END 2017-01-31 08:50 | disposition expired | DRG 917 ==
LOC: CED 04:00 → CEDOF 07:20 → CICCU3 07:20 → CEDOF 07:30 → CED 07:30 → CEDOF 09:37 → CICCU3 09:37
PROVIDERS: Emergency Medicine; Family Medicine; Internal Medicine
PROC: 0BH17EZ Insertion of Endotracheal Airway into Trachea, Via Natural or Artificial Opening (ICD-10-PCS; principal; 2017-01-27)
PROC: 5A1945Z Respiratory Ventilation, 24-96 Consecutive Hours (ICD-10-PCS; 2017-01-27)
DX: T40.1X1A Poisoning by heroin, accidental (unintentional), initial encounter (principal); A41.9 Sepsis, unspecified organism; J96.01 Acute respiratory failure with hypoxia; G93.6 Cerebral edema; R65.21 Severe sepsis with septic shock; J69.0 Pneumonitis due to inhalation of food and vomit; G93.1 Anoxic brain damage, not elsewhere classified; E13.10 Other specified diabetes mellitus with ketoacidosis without coma; E46 Unspecified protein-calorie malnutrition; Z68.1 Body mass index [BMI] 19.9 or less, adult; Z79.4 Long term (current) use of insulin; F19.10 Other psychoactive substance abuse, uncomplicated; F17.210 Nicotine dependence, cigarettes, uncomplicated; Z91.19 Patient's noncompliance with other medical treatment and regimen; E11.43 Type 2 diabetes mellitus with diabetic autonomic (poly)neuropathy; K31.84 Gastroparesis; D64.89 Other specified anemias; D72.829 Elevated white blood cell count, unspecified; Z86.14 Personal history of Methicillin resistant Staphylococcus aureus infection; D69.6 Thrombocytopenia, unspecified; Z66 Do not resuscitate
CPT/HCPCS: 36556; 36600; 70450; 71010; 80048; 80076; 80202; 80307; 81003; 82550; 82553; 82803; 82947; 83735; 84100; 84132; 84484; 84703; 85025; 87040; 87493; 92950; 93005; 94002; 94003; 94760; 94761; 95816; 96365; 96366; 96375; 99291; 99292; C9113; G0480; J0171; J0461; J0692; J1815; J2310; J3370; J3475